=== PATIENT | female | born 1960 | race Caucasian/White ===

== ENCOUNTER → 2020-03-18 09:12 | Outpatient (BNVA) | payer OTHER, SELFPAY | PROVIDERS: Family Provider Family Medicine; Visit Provider Family Medicine | DX: Z20.828 Contact with and (suspected) exposure to other viral communicable diseases (principal); Z11.59 Encounter for screening for other viral diseases | CPT/HCPCS: 87635 ==

== ENCOUNTER 2020-06-10 10:54 | Outpatient (CLI) | payer OTHER, SELFPAY ==
--- NOTE | 2020-06-10 10:59 | MM_ITS ---
WS: [id number] BILATERAL DIGITAL SCREENING MAMMOGRAPHY WITH CAD CLINICAL INFORMATION: SCREENING HISTORY: Screening mammogram. No current complaints. COMPARISON: TECHNIQUE: Bilateral CC and MLO views. FINDINGS: History of bilateral breast reduction Scattered fibroglandular densities bilaterally. No suspicious focal mass, asymmetry, calcifications, or architectural distortion. No evidence of malignancy. MM/[place] [id number] IMPRESSION: BI-RADS: 1-Negative FOLLOW UP: 1 Year Follow-up Recommend return to annual screening mammography.
== END 2020-06-10 10:55 | disposition home or self-care (01) ==
LOC: RADSHAW 10:56
PROVIDERS: Family Provider Family Medicine; Visit Provider Family Medicine
DX: Z12.31 Encounter for screening mammogram for malignant neoplasm of breast (principal)
CPT/HCPCS: 77067

== ENCOUNTER 2020-08-24 13:58 | Outpatient (CLI) | payer OTHER, SELFPAY ==
--- NOTE | 2020-08-24 14:10 | USCV_ITS ---
Juanita Perry Age: 59 Gender: F : 1960 Exam Date: 08/24/2020 14:19 Ordering Phys: Mik Laguerre MD Technologist: Jduit Rodriguez [place] [facility] [place] LLE PAIN AND SWELLING HISTORY: Lower extremity swelling. Lower extremity pain. PROCEDURES: Venous duplex imaging was performed in only the left lower extremity. The following venous structures were evaluated: common femoral vein, profunda vein, proximal portion of the greater saphenous vein, superficial femoral vein, and the popliteal vein. In addition, the posterior tibial and peroneal trunk were evaluated. Serial compression, augmentation maneuvers, and spectral Doppler flow evaluation were performed. FINDINGS: Normal 2-D Doppler and augmentation and compressibility throughout the lower extremity venous structures. Additional imaging through the proximal calf veins also reveals no thrombus. Limited evaluation of the greater saphenous vein is patent with no thrombus. CONCLUSIONS No DVT left lower extremity. Dr. Alice Rivera DO (Electronically Signed) Final Date: 24 Aug 2020 14:57 S
== END 2020-08-24 13:59 | disposition home or self-care (01) ==
LOC: RAD 14:04
PROVIDERS: PCP Family Medicine; Visit Provider Family Medicine
DX: M79.89 Other specified soft tissue disorders (principal); M79.605 Pain in left leg
CPT/HCPCS: 93971

== ENCOUNTER 2021-02-10 15:59 | Outpatient (CLI) | payer OTHER, SELFPAY ==
--- NOTE | 2021-02-10 16:02 | XR_ITS ---
WS: [id number] SCREENING DEXA SCAN [employer] CLINICAL INFORMATION: POSTMENOPAUSAL STATUS COMPARISON: None. FINDINGS: The L1-L4 bone mineral density measures 0.871 g/cm2. This corresponds to a T score score of -2.6 and Z score of -2.4. Left femoral neck bone mineral density measures 0.885 g/cm2. This corresponds to a T score of -1.0 an d Z score of -0.8. Right femoral neck bone mineral density measures 0.817 g/cm2. This corresponds to a T score -1.5of an d Z score of -1.3. Mean femoral neck bone mineral density measures 0.851 g/cm2. This corresponds to a T score of -1.2 an d Z score of -1.1. XR/XR DEXA axial skeleton* [id number] IMPRESSION: Osteoporosis lumbar spine at the lower end of the range. Osteopenia femoral nec ks. Patient's FRAX calculated 10 year probability for major osteoporotic fracture i s 8.5 % and osteoporotic hip fracture is 1.0%.
== END 2021-02-10 16:00 | disposition home or self-care (01) ==
PROVIDERS: PCP Family Medicine; Visit Provider Family Medicine
DX: Z78.0 Asymptomatic menopausal state (principal); M81.0 Age-related osteoporosis without current pathological fracture; M85.88 Other specified disorders of bone density and structure, other site
CPT/HCPCS: 77080

== ENCOUNTER 2022-05-13 08:16 | Outpatient (CLI) | payer OTHER, SELFPAY ==
--- NOTE | 2022-05-13 08:40 | MM_ITS ---
WS: [id number] BILATERAL SCREENING DIGITAL TOMOSYNTHESIS MAMMOGRAM WITH CAD HISTORY: SCREENING COMPARISON: 06/10/2020, 06/06/2018 Bilateral CC and MLO views with tomosynthesis and synthetic mammography submitted. Computer aided det ection analyzed. Breast composition: There are scattered areas of fibroglandular density. r Soft tissue measures 7 mm posterior to the RIGHT nipple. This could be an inverted nipple but needs t o be further evaluated as it was not present on prior studies. There is an additional 5 mm nodule in the central RIGHT breast at a mid to anterior depth just above the nipple line. Stable nodule mid lat eral LEFT breast. MM/[place] [id number] IMPRESSION: BI-RADS: 0-Incomplete: Need additional imaging evaluation FOLLOW UP: Need Additional Imaging RIGHT breast: Spot compression views (CC and MLO). True ML. Ultrasound to follo w if abnormality persists. Spot compression views posterior to the RIGHT nipple and the nodule near 12:00.
== END 2022-05-13 08:17 | disposition home or self-care (01) ==
LOC: RAD 08:17
PROVIDERS: PCP Family Medicine; Visit Provider Family Medicine
DX: Z12.31 Encounter for screening mammogram for malignant neoplasm of breast (principal); N63.10 Unspecified lump in the right breast, unspecified quadrant
CPT/HCPCS: 77063; 77067

== ENCOUNTER 2022-06-13 14:12 | Outpatient (CLI) | payer OTHER, SELFPAY ==
--- NOTE | 2022-06-13 14:24 | MM_ITS ---
WS: [id number] ADDITIONAL VIEWS RIGHT MAMMOGRAM WITH DIGITAL BREAST TOMOSYNTHESIS. RIGHT BREAST ULTRASOUND HISTORY: ABNORMAL MAMMO COMPARISON: 05/13/2022, 06/10/2020 and 06/06/2018 RIGHT MAMMOGRAM: Spot compression views and true ML with digital breast tomosynthesis and SM. Asymmetry nearly completely resolves along the superior breast. There is still very mild increased so ft tissue which may be normal fibroglandular pattern. No remaining abnormality posterior to the nippl e. RIGHT BREAST ULTRASOUND 2-D and color Doppler imaging submitted. Ultrasound is directed to the 12:00 region. There are no suspicious masses. Dense fibroglandular tiss ue. No shadowing. MM/[place] [id number] IMPRESSION: BI-RADS: 2-Benign FOLLOW UP: 1 Year Follow-up No persistent mammographic or ultrasound abnormality.
== END 2022-06-13 14:13 | disposition home or self-care (01) ==
PROVIDERS: PCP Family Medicine; Visit Provider Family Medicine
DX: R92.8 Other abnormal and inconclusive findings on diagnostic imaging of breast (principal); N64.89 Other specified disorders of breast
CPT/HCPCS: 76642; 77061; G0279

== ENCOUNTER → 2022-10-14 08:58 | Outpatient (BNVA) | payer OTHER, SELFPAY | PROVIDERS: PCP Family Medicine; Visit Provider Family Medicine | DX: E53.8 Deficiency of other specified B group vitamins (principal); R53.81 Other malaise; R53.83 Other fatigue; Z13.220 Encounter for screening for lipoid disorders; Z51.81 Encounter for therapeutic drug level monitoring; D55.9 Anemia due to enzyme disorder, unspecified | CPT/HCPCS: 80053; 80061; 82306; 82607; 84439; 84443; 85025 ==

== ENCOUNTER 2023-02-13 12:57 | Outpatient (CLI) | payer OTHER, SELFPAY ==
--- NOTE | 2023-02-13 13:00 | XR_ITS ---
WS: [id number] DEXA (DUAL ENERGY X-RAY ABSORPTIOMETRY) Bone mineral density was performed using a [employer] machine. HISTORY: Osteoporosis COMPARISON: 02/10/2021 Lumbar spine BMD (L1-L4): 0.965 g/cm2 T score: -1.8 Z score: -1.7 Total hip BMD: Left: 0.943 g/cm2. T score: -0.5 Z score: -0.4 Right: 0.837 g/cm2. T score: -1.4 Z score: -1.3 10 year probability of a major osteoporotic fracture is 15.2%. Compared to the prior study from 02/10/2021. Lumbar spine bone mineral density has increased by 10.8%. Bilateral hips bone mineral density has increased by 4.6%. IMPRESSION: OSTEOPENIA based upon the WHO classification for females. Significant improvement in bone mineral density within the lumbar spine and hips since the prior stud y.
== END 2023-02-13 12:58 | disposition home or self-care (01) ==
LOC: RAD 12:57
PROVIDERS: PCP Family Medicine; Visit Provider Family Medicine
DX: M81.0 Age-related osteoporosis without current pathological fracture (principal); M85.80 Other specified disorders of bone density and structure, unspecified site
CPT/HCPCS: 77080

== ENCOUNTER 2023-06-21 08:49 | Outpatient (CLI) | payer OTHER, SELFPAY ==
--- NOTE | 2023-06-21 08:55 | MM_ITS ---
WS: [id number] Bilateral screening 3D tomosynthesis digital mammogram, 06/21/2023 Clinical Data: SCREENING Comparison: 06/13/2022, 05/13/2022, 06/10/2020, 06/06/2018, 04/12/2017, 03/29/2016, 02/03/2015, 09/26/2013 , 05/25/2011, 12/14/2010, 01/08/2009 , 01/22/2007. Findings: The breast parenchymal pattern shows fibroglandular tissue. There is still increased tissue in the caal perior aspect of the right breast seen on the MLO view unchanged. No spiculated masses or clustered c alcifications are seen. There are no secondary signs of carcinoma. Impression: 1. Negative bilateral mammogram unchanged. 2. Recommend annual screening mammograms. MM/[place] [id number] BIRADS: 1-Negative FOLLOW UP: 1 Year Follow-up The CAD color checker was used.
== END 2023-06-21 08:50 | disposition home or self-care (01) ==
LOC: RAD 08:50
PROVIDERS: PCP Family Medicine; Visit Provider Family Medicine
DX: Z12.31 Encounter for screening mammogram for malignant neoplasm of breast (principal)
CPT/HCPCS: 77063; 77067

== ENCOUNTER → 2024-05-14 07:48 | Outpatient (BNVA) | payer OTHER, SELFPAY | PROVIDERS: PCP Family Medicine; Visit Provider Family Medicine | DX: Z13.220 Encounter for screening for lipoid disorders (principal); E55.9 Vitamin D deficiency, unspecified; Z51.81 Encounter for therapeutic drug level monitoring | CPT/HCPCS: 80053; 80061; 82306; 85025 ==

== ENCOUNTER 2024-07-12 13:45 | Outpatient (CLI) | payer OTHER, SELFPAY ==
--- NOTE | 2024-07-12 13:47 | MM_ITS ---
WS: [id number] BILATERAL 3D TOMOSYNTHESIS DIGITAL SCREENING MAMMOGRAPHY WITH CAD CLINICAL INFORMATION: SCREENING HISTORY: Screening mammogram. No current complaints. History of breast reduction COMPARISON: 2023 TECHNIQUE: Bilateral CC and MLO views. FINDINGS: Scattered fibroglandular densities bilaterally. No suspicious focal mass, asymmetry, calcifications, or architectural distortion. No evidence of malignancy. MM/MM [facility] tomosynthesis [id number] IMPRESSION: DENSITY: There are scattered areas of fibroglandular density. BI-RADS: 1 - Negative. FOLLOW UP: 1 Year Follow-up Recommend return to annual screening mammography.
== END 2024-07-12 13:46 | disposition home or self-care (01) ==
LOC: RAD 13:46
PROVIDERS: PCP Family Medicine; Visit Provider Family Medicine
DX: Z12.31 Encounter for screening mammogram for malignant neoplasm of breast (principal); R92.323 Mammographic fibroglandular density, bilateral breasts
CPT/HCPCS: 77063; 77067

== ENCOUNTER 2024-09-23 19:50 | Emergency (ER) | payer OTHER, SELFPAY ==
[2024-09-23] VITALS (7 sets, daily range): BP systolic 144–204; BP diastolic 67–104; PULSE 65–74; RESP 16–22; TEMP 36.6; O2SAT 93–98; BMI 33.2
--- NOTE | 2024-09-23 19:58 | XRR_ITS ---
PROCEDURE INFORMATION: Exam: XR Right Humerus Exam date and time: 09/23/2024 8:10 PM Age: 63 years old Clinical indication: Injury or trauma; Fall; Fracture, traumatic injury; Closed fracture; Humerus; Right TECHNIQUE: Imaging protocol: Radiologic exam of the right humerus. Views: 2 or more views. COMPARISON: l spine FINDINGS: Bones/joints: Oblique angulated fracture of the mid shaft of the right humerus. Medial angulation of the distal component. No dislocation. Soft tissues: Normal. XR/[place] [id number] IMPRESSION: Oblique fracture of the midshaft of the right humerus with medial angulation of the distal component.
--- NOTE | 2024-09-23 19:58 | ED_ITS ---
HPI - Extremity Problem General: Chief complaint: Extremity Injury, Upper Stated complaint: R possible broken arm Time Seen by Provider: 09/23/24 19:51 History of Present Illness: Patient comes in by EMS with right arm pain. States that she tripped and fell landing on her right arm. Denies any other trauma. On physical exam she has deformity of her right proximal humerus. Her right elbow is nontender. Distal pulses are intact in the right arm. Will check x-ray, treat pain with 100 mcg of fentanyl, and reassess. Related Data Home Medications ?Medication ?Instructions ?Recorded ?Confirmed latanoprost 0.005 % eye drops 1 drp ophthalmic (eye) D AILY 10/13/22 08/30/24 timolol maleate 0.25 % eye drops 1 drp ophthalmic (eye ) DAILY 05/13/24 08/30/24 Previous Rx's ?Medication ?Instructions ?Recorded cholecalciferol (vitamin D3) 50 50 mcg PO DAILY #30 ca ps 10/31/22 mcg (2,000 unit) capsule albuterol sulfate 90 mcg/actuation 2 puff inhalation Q 6H PRN 02/07/24 aerosol inhaler shortness of breath or wheez ing #8.5 grams trazodone 50 mg tablet See Rx Instructions .Route 1 .COMPLEX #180 tabs losartan 50 mg tablet 50 mg PO DAILY #30 tabs 04/18 11/08 venlafaxine 37.5 mg See Rx Instructions .Route 0 07/30/24 capsule,extended release 24 hr .COMPLEX #30 caps clindamycin HCl 300 mg capsule 300 mg PO TID 7 days #2 1 caps 08/29/24 (Cleocin HCl) oxycodone 5 mg capsule 5 mg PO Q4H PRN pain #20 cap s 09/23/24 Allergies Allergy/AdvReac Type Severity Reaction Status Date / Time Penicillins Allergy Unknown Verified 07/20/22 10:58 Review of Systems Musc: Reports: extremity pain PFSH ED PFSH: Medical History Trigeminal neuralgia Borderline glaucoma Major depression Insomnia Bronchitis Surgical History Hx of cholecystectomy 2010 Hx of bilateral breast reduction surgery 2011 Hx of hysterectomy with BLO in 2004 Family History Other Diabetes Glaucoma Hypertension Lupus Social History Smoking and tobacco/nicotine status: never used tobacco/nicotine Alcohol intake: never Substance/Drug Use: never Marital status: Physical Exam Const: COMMON NORMALS: healthy appearing HENMT: COMMON NORMALS: normocephalic and atraumatic HEAD & SCALP: normocephalic and atraumatic Neck/C-Spine: COMMON NORMALS: full ROM and supple Resp: COMMON NORMALS: normal respiratory effort, No retractions and No use of accessory muscles Extremity: NARRATIVE EXTREMITY EXAM: Deformity of the right upper extremity, right arm is neurovascularly intact, no tenderness to palpation of the right elbow or right wrist Procedures Orthopedic Fracture Reduction Fracture #1: Time Out Performed: Yes Side: right Fracture Reduction Location: humerus Analgesia: procedural sedation Technique: direct manipulation Post-reduction neuro exam: intact Post-reduction vascular exam: intact Splint Applied: Yes Patient Tolerated Procedure: well Orthopedic Splinting/Casting Injury #1: Side: right Upper Extremity Injury Location: upper arm Upper Extremity Immobilizer: sling/shoulder immobilizer (Coaptation splint applied) Procedural Sedation Indication: fracture/dislocation reduction ASA Class: II Preparation: nuclear monitoring technician applied, supplemental O2 applied, reversal agents at bedside, suction/airway equipment at bedside and IV secured Ketamine: IV Ketamine dose (mg): 65 IV Propofol dose (mg): 65 Patient Tolerated Procedure: well Complications: none Course Vital Signs: Vital signs: Vital Signs Temperature 97.9 F 09/23/24 19:50 Pulse Rate 65 09/23/24 21:44 Respiratory Rate 16 09/23/24 21:44 Blood Pressure 149/67 09/23/24 21:44 Pulse Oximetry 94 09/23/24 21:44 Oxygen Delivery Me thod Room Air 09/23/24 20:44 MDM - Extremity (Nontraumatic) Medical Decision Making On reassessment talk to the patient her test results. Her x-ray shows a mid shaft right humeral fracture with angulation of the distal fragment. She is in extreme discomfort and not tolerating pain medication very well. I talked with her about sedation for placement of a coaptation splint which she is agreeable to. We discussed the risks and benefits of sedation and she states that she understands. States that she has done well with sedation before. Will use ketamine and propofol combined to reduce the amount of sedation necessary and hopefully reduce the side effects. Will also give her 4 of Zofran once the splint is placed prior to her recovering from the sedation as she states she gets very nauseated usually. Patient tolerated the sedation and splint placement without complication. Patient is awake and doing well. Will write for pain medication to go home with, refer her to orthopedic surgery, and discharged with precautions to return for worsening or changing symptoms. Lab Data Radiology Impressions Humerus X-Ray 09/23/24 21:09 IMPRESSION: Status post reduction of mid humeral shaft fracture with improved anatomic alignment, there is still moderate medial displacement. All radiology interpretation(s) finalized by discharge Discharge Plan Discharge Patient Disposition: Home Clinical Impression: Fracture of humerus Condition: Stable Prescriptions: New oxycodone 5 mg capsule 5 mg PO Q4H PRN (Reason: pain) Qty: 20 0RF No Action timolol maleate 0.25 % drops 1 drp ophthalmic (eye) DAILY Rx Instructions: Both eyes losartan 50 mg tablet 50 mg PO DAILY Qty: 30 6RF clindamycin HCl [Cleocin HCl] 300 mg capsule 300 mg PO TID 7 Days Qty: 21 0RF latanoprost 0.005 % drops 1 drp ophthalmic (eye) DAILY cholecalciferol (vitamin D3) 50 mcg (2,000 unit) capsule 50 mcg PO DAILY Qty: 30 6RF albuterol sulfate 90 mcg/actuation HFA aerosol inhaler 2 puff inhalation Q6H PRN (Reason: shortness of breath or wheezing) Qty: 8.5 6RF trazodone 50 mg tablet See Rx Instructions .ROUTE .COMPLEX Qty: 180 3RF Dose Instruction: TAKE 1 TO 2 TABLETS BY MOUTH IN THE EVENING NEEDED FOR insomnia Rx Instructions: TAKE 1 TO 2 TABLETS BY MOUTH IN THE EVENING NEEDED FOR insomnia venlafaxine 37.5 mg capsule,extended release 24hr See Rx Instructions .ROUTE .COMPLEX Qty: 30 6RF Dose Instruction: take 1 capsule BY MOUTH EVERY DAY Rx Instructions: take 1 capsule BY MOUTH EVERY DAY Discharge Orders: Discharge ED (Routine); Ordered 09/23/24 Ordered By: Alvino Campoverde Referrals: Param Michelle MD [Physician, Orthopedics] Mik Laguerre MD [Primary Care Provider, Family Practice] Patient Instructions: Proximal Humerus Fracture (ED), Opioid Safety, Pain Management Print Language: Irish Coding Level of Care Code ED Dramatic Art Teacher for Rolf Levin
[2024-09-23] MEDS: fentaNYL 50 mcg/mL INJ 2mL 100 MCG IVP (20:05)
[2024-09-23] MEDS: ketamine 100 mg/mL Inj 5 mL 65 MG IV (20:50)
[2024-09-23] MEDS: propofol 10 mg/mL SDV 20 mL 65 MG IVP (20:50)
[2024-09-23] MEDS: ondansetron 2 mg/ML SDV 2 mL 4 MG IVP (21:07)
--- NOTE | 2024-09-23 21:09 | XRR_ITS ---
PROCEDURE INFORMATION: Exam: XR Right Humerus Exam date and time: 09/23/2024 9:13 PM Age: 63 years old Clinical indication: Other: Post reduction TECHNIQUE: Imaging protocol: Radiologic exam of the right humerus. Views: 2 or more views. COMPARISON: CR (UP EXM, ) 09/23/2024 8:10 PM FINDINGS: Bones/joints: Status post reduction of the mid humeral shaft fracture with improved anatomic alignment however, there is still some displacement. Soft tissues: Normal. XR/[place] [id number] IMPRESSION: Status post reduction of mid humeral shaft fracture with improved anatomic alignment, there is still moderate medial displacement.
[2024-09-23] MEDS: metoclopramide 5 mg/mL SDV 2 mL 10 MG IVP (22:40)
[2024-09-23] MEDS: oxyCODONE-APAP 5-325 mg Tablet 2 TAB PO (22:55)
== END 2024-09-23 22:49 | disposition home or self-care (01) ==
PROVIDERS: Emergency Provider Emergency Medicine; PCP Family Medicine
DX: S42.331A Displaced oblique fracture of shaft of humerus, right arm, initial encounter for closed fracture (principal); Z79.899 Other long term (current) drug therapy; W01.0XXA Fall on same level from slipping, tripping and stumbling without subsequent striking against object, initial encounter
CPT/HCPCS: 24505; 73060; 96374; 96375; 99285; 99291; J2405; J2704; J2765; J3010; J3490; J9999

== ENCOUNTER → 2024-09-26 13:29 | Outpatient (BNVA) | payer OTHER, SELFPAY | PROVIDERS: PCP Family Medicine; Visit Provider Orthopaedic Surgery | DX: S42.301A Unspecified fracture of shaft of humerus, right arm, initial encounter for closed fracture (principal); W10.9XXA Fall (on) (from) unspecified stairs and steps, initial encounter | CPT/HCPCS: 73060 ==

== ENCOUNTER → 2024-10-03 09:33 | Outpatient (BNVA) | payer OTHER, SELFPAY | PROVIDERS: PCP Family Medicine; Visit Provider Orthopaedic Surgery | DX: S42.391D Other fracture of shaft of right humerus, subsequent encounter for fracture with routine healing (principal); X58.XXXD Exposure to other specified factors, subsequent encounter | CPT/HCPCS: 73060 ==

== ENCOUNTER 2024-10-03 11:15 | Outpatient (CLI) | payer OTHER, SELFPAY | END 2024-10-03 11:16 | disposition home or self-care (01) | LOC: SPT 11:16 | PROVIDERS: PCP Family Medicine; Visit Provider Orthopaedic Surgery | DX: Z46.89 Encounter for fitting and adjustment of other specified devices (principal); S42.291D Other displaced fracture of upper end of right humerus, subsequent encounter for fracture with routine healing; X58.XXXD Exposure to other specified factors, subsequent encounter | CPT/HCPCS: L3980 ==

== ENCOUNTER → 2024-10-21 08:33 | Outpatient (BNVA) | payer OTHER, SELFPAY | PROVIDERS: PCP Family Medicine; Visit Provider Orthopaedic Surgery | DX: S42.391D Other fracture of shaft of right humerus, subsequent encounter for fracture with routine healing (principal); X58.XXXD Exposure to other specified factors, subsequent encounter | CPT/HCPCS: 73060 ==

== ENCOUNTER → 2024-11-01 10:57 | Outpatient (BNVA) | payer OTHER, SELFPAY | PROVIDERS: PCP Family Medicine; Visit Provider Orthopaedic Surgery | DX: S42.391D Other fracture of shaft of right humerus, subsequent encounter for fracture with routine healing (principal); X58.XXXD Exposure to other specified factors, subsequent encounter | CPT/HCPCS: 73060 ==

== ENCOUNTER → 2024-11-08 11:23 | Outpatient (BNVA) | payer OTHER, SELFPAY | PROVIDERS: PCP Family Medicine; Visit Provider Orthopaedic Surgery | DX: S42.391D Other fracture of shaft of right humerus, subsequent encounter for fracture with routine healing (principal); X58.XXXD Exposure to other specified factors, subsequent encounter | CPT/HCPCS: 73060 ==

== ENCOUNTER → 2024-12-02 09:01 | Outpatient (BNVA) | payer OTHER, SELFPAY | PROVIDERS: PCP Family Medicine; Visit Provider Orthopaedic Surgery | DX: S42.391D Other fracture of shaft of right humerus, subsequent encounter for fracture with routine healing (principal); X58.XXXD Exposure to other specified factors, subsequent encounter | CPT/HCPCS: 73060 ==

== ENCOUNTER 2024-12-18 15:15 | Outpatient (RCR) | payer OTHER, SELFPAY | END 2025-01-14 23:59 | disposition home or self-care (01) | LOC: SOT 15:15 | PROVIDERS: Visit Provider Orthopaedic Surgery | DX: S42.291A Other displaced fracture of upper end of right humerus, initial encounter for closed fracture (principal); X58.XXXA Exposure to other specified factors, initial encounter | CPT/HCPCS: 97110; 97140; 97167; 97530 ==

== ENCOUNTER → 2024-12-30 08:50 | Outpatient (BNVA) | payer OTHER, SELFPAY | PROVIDERS: PCP Family Medicine; Visit Provider Orthopaedic Surgery | DX: S42.391D Other fracture of shaft of right humerus, subsequent encounter for fracture with routine healing (principal); X58.XXXD Exposure to other specified factors, subsequent encounter | CPT/HCPCS: 73060 ==

== ENCOUNTER 2025-02-11 10:41 | Outpatient (RCR) | payer OTHER, SELFPAY | END 2025-02-14 23:59 | disposition home or self-care (01) | LOC: SOT 10:41 | PROVIDERS: PCP Family Medicine; Visit Provider Orthopaedic Surgery | DX: S42.301K Unspecified fracture of shaft of humerus, right arm, subsequent encounter for fracture with nonunion (principal); X58.XXXD Exposure to other specified factors, subsequent encounter | CPT/HCPCS: 97110; 97140; 97166 ==

== ENCOUNTER 2025-02-15 05:00 | Outpatient (RCR) | payer OTHER, SELFPAY | END 2025-03-16 23:59 | disposition home or self-care (01) | LOC: SOT 05:00 | PROVIDERS: PCP Family Medicine; Visit Provider Orthopaedic Surgery | DX: S42.301K Unspecified fracture of shaft of humerus, right arm, subsequent encounter for fracture with nonunion (principal); X58.XXXD Exposure to other specified factors, subsequent encounter | CPT/HCPCS: 97110; 97140 ==

== ENCOUNTER 2025-03-17 05:00 | Outpatient (RCR) | payer OTHER, SELFPAY | END 2025-04-16 23:59 | disposition home or self-care (01) | LOC: SOT 05:00 | PROVIDERS: PCP Family Medicine; Visit Provider Orthopaedic Surgery | DX: S42.301K Unspecified fracture of shaft of humerus, right arm, subsequent encounter for fracture with nonunion (principal); X58.XXXD Exposure to other specified factors, subsequent encounter | CPT/HCPCS: 97110; 97140; 97530 ==

== ENCOUNTER → 2025-04-06 11:16 | Outpatient (BNVA) | payer OTHER, SELFPAY | PROVIDERS: PCP Family Medicine; Visit Provider Emergency Medicine | DX: J11.1 Influenza due to unidentified influenza virus with other respiratory manifestations (principal); U07.1 COVID-19; R39.89 Other symptoms and signs involving the genitourinary system | CPT/HCPCS: 87400; 87426 ==